=== PATIENT | male | born 1935 | race Hispanic/Latino ===

== ENCOUNTER 2017-05-19 15:00 | Outpatient (CLI) | payer MEDICARE ==
--- NOTE | 2017-05-19 15:20 | XRay Report ---
Left knee 4 views: History: Knee pain. Findings: Marked narrowing of the medial and patellofemoral compartment. Sclerotic articular surfaces with osteophyte suggestive of severe degenerative changes. Moderate degenerative changes lateral compartment. No evidence of acute fracture. Old healed fracture proximal diaphysis fibula. Metallic screw in the tibial plateau. Impression: Severe degenerative changes. No acute findings.
== END 2017-05-19 15:01 | disposition home or self-care (01) ==
LOC: SPVIMAG 15:00
PROVIDERS: ATTEND Orthopaedic Surgery Sports Medicine
DX: M17.12 Unilateral primary osteoarthritis, left knee (principal); S82.492D Other fracture of shaft of left fibula, subsequent encounter for closed fracture with routine healing; X58.XXXD Exposure to other specified factors, subsequent encounter

== ENCOUNTER 2017-09-07 09:09 | Outpatient (CLI) | payer MEDICARE ==
--- NOTE | 2017-09-07 10:40 | XRay Report ---
XRAY LEFT KNEE 3 VIEWS: 09/07/17 09:09:00 CLINICAL: Osteoarthritis left knee. COMPARISON: 05/19/17 FINDINGS: Moderate osteopenia. A total knee replacement has been performed since the last exam. Normal appearance of the prosthesis. No joint effusion. Moderate anterior soft tissue edema. IMPRESSION: Nonspecific soft tissue edema status post total knee replacement.
== END 2017-09-07 09:10 | disposition home or self-care (01) ==
LOC: SPVIMAG 09:09
PROVIDERS: ATTEND Orthopaedic Surgery Sports Medicine
DX: M85.862 Other specified disorders of bone density and structure, left lower leg (principal); Z96.652 Presence of left artificial knee joint